=== PATIENT | female | born 1945 | race Two or more races ===

== ENCOUNTER 2020-07-30 09:02 | Outpatient (CLI) | payer OTHER | END 2020-07-30 09:11 | disposition home or self-care (01) | LOC: MRI 09:02 | PROVIDERS: ATTEND Pediatrics | DX: C71.1 Malignant neoplasm of frontal lobe (principal); G93.89 Other specified disorders of brain | CPT/HCPCS: 70553 ==

== ENCOUNTER 2020-08-01 12:21 | Outpatient (CLI) | payer OTHER | END 2020-08-01 12:26 | disposition home or self-care (01) | LOC: RAD 12:21 | PROVIDERS: ATTEND Pediatrics | DX: M25.561 Pain in right knee (principal); M25.562 Pain in left knee; S62.664A Nondisplaced fracture of distal phalanx of right ring finger, initial encounter for closed fracture ==

== ENCOUNTER 2020-08-22 08:04 | Outpatient (CLI) | payer OTHER | END 2020-08-22 08:05 | disposition home or self-care (01) | LOC: NUCLEAR 08:04 | PROVIDERS: ATTEND Orthopaedic Surgery | DX: M81.0 Age-related osteoporosis without current pathological fracture (principal) ==

== ENCOUNTER 2021-01-18 08:05 | Outpatient (CLI) | payer OTHER | END 2021-01-18 08:10 | disposition home or self-care (01) | LOC: PPH VACUNA 08:05 | PROVIDERS: ATTEND Emergency Medicine Pediatric Emergency Medicine | DX: Z23 Encounter for immunization (principal) ==

== ENCOUNTER 2023-08-13 09:00 | Outpatient (CLI) | payer OTHER | END 2023-08-13 11:22 | disposition home or self-care (01) | LOC: RAD 09:00 | PROVIDERS: ATTEND Pediatrics | DX: M25.569 Pain in unspecified knee (principal) | CPT/HCPCS: 73718 ==